=== PATIENT | female | born 1950 | race African-American/Black ===

== ENCOUNTER 2022-11-19 12:05 | Emergency (ER) | payer BC, OTHER ==
[~2022-11-19] VITALS: Ht 175.3 cm; Wt 68.0 kg
[2022-11-19 12:11] VITALS: O2SAT 100
[2022-11-19 12:53] LABS: BASOPHILS % 1.1 % (0.0-2.0); EOSINOPHILS % 2.3 % (0.0-5.0); HEMATOCRIT. 39.7 % (36.0-48.0); HEMOGLOBIN. 13.5 g/dL (12.0-16.0); LYMPHOCYTES % 37.2 % (20.0-50.0); MEAN CORPUSCULAR HEMOGLOBIN 31.8 pg (28.0-32.0); MEAN CORPUSCULAR VOLUME 93.6 fL (81.0-99.0); MEAN PLATELET VOLUME 9.2 fl (7.4-10.4); MONOCYTES % 9.5 % (2.0-8.0); NEUTROPHILS % 49.9 % (40.0-76.0); PLATELET 215 x1000/uL (130-400); RED BLOOD CELL COUNT 4.24 mill/uL (4.2-5.4); WHITE BLOOD COUNT 3.5 x1000/uL (4.5-11.0)
[2022-11-19 13:02] LABS: CHLORIDE 107 mEq/L (98-107); INDEX HEMOLYSI 5 (1-3); INDEX ICTERIC 1 (1-4); INDEX LIPEMIC 1 (1-3); SODIUM 134 mEq/L (136-145)
[2022-11-19 13:12] LABS: ALANINE AMINOTRANSFERASE 82 IU/L (13-61); ALBUMIN 3.8 g/dL (3.4-5.0); ASPARTATE AMINOTRANSFERASE 75 IU/L (15-37); BILIRUBIN TOTAL 0.6 mg/dL (0.1-1.0); CALCIUM 8.6 mg/dL (8.5-10.1); CARBON DIOXIDE 23 mEq/L (21-32); CREATININE 0.8 mg/dL (0.6-1.3); GLUCOSE 98 mg/dL (70-105); NT PRO B-TYPE NATRIURETIC PEP 96 pg/mL (5-125); UREA NITROGEN BLOOD 16 mg/dL (7-21)
[2022-11-19 13:33] LABS: TROPONIN I HIGH SENSITIVITY < 4 ng/L (<54)
[2022-11-19 13:34] LABS: POTASSIUM 5.6 mEq/L (3.5-5.1)
[2022-11-19 14:36] VITALS: BP 165/95; PULSE 76; RESP 18; TEMP 98.4
== END 2022-11-19 14:47 | disposition home or self-care (01) ==
LOC: ER 12:05
DX: R00.2 Palpitations (principal)
CPT/HCPCS: 80053; 83880; 85025; 84484; 36415; 71045; 93005; 99285; Z7610